=== PATIENT | male | born 1990 | race Caucasian/White ===

== ENCOUNTER 2019-12-31 19:06 | Emergency (ER) | payer SELFPAY ==
[~2019-12-31] VITALS: Ht 160 cm; Wt 77.3 kg
[2019-12-31 19:20] VITALS: BP 127/86
[2019-12-31] MEDS ORDERED: TR1C15 TP (19:47)
--- NOTE | 2019-12-31 19:47 | ED Integumentary General ---
General Chief Complaint: Allergic Reaction Stated Complaint: RASH ON FACE Nursing Triage Note: pt noticed rash above right eye this morning and now has spread up forehead, pt has not taken anything for rash, no known cause other than pt has been stressed Source: patient Exam Limitations: no limitations History of Present Illness Date Seen by Provider: Dec 31, 2019 Time Seen by Provider: 19:42 Initial Comments Patient complains of a rash starting on the right eyebrow area spread down bilateral nasal labial fold area onto his cheeks stops at the jawline is not on the forehead there is non-the posterior neck is on the chest abdomen back it's not pruritic S of breath no vomiting or diarrhea no history of allergy problems no change in medication. Timing/Duration: this morning Severity: mild Location: face Possible Cause: no cause identified Associated Symptoms: denies symptoms Allergies and Home Medications Patient Home Medication List Home Medication List Reviewed: Yes Review of Systems Review of Systems Constitutional: no symptoms reported EENTM: No blurred vision, No double vision, No throat pain Respiratory: No short of breath, No stridor Cardiovascular: No edema, No palpitations, No syncope Gastrointestinal: No diarrhea, No nausea Genitourinary: No hematuria, No pain Skin: see HPI Psychiatric/Neurological: See HPI; Denies Paresthesia, Denies Seizure, Denies Tingling Endocrine: See HPI; Denies Excessive Sweating, Denies Flushing, Denies Increased Urine, Denies Other Hematologic/Lymphatic: Denies Other Past Wafxoed-Maxscn-Iitkma Hx Past Med/Social Hx: Reviewed Nursing Past Med/Soc Hx Patient Social History Alcohol Use: Denies Use Recreational Drug Use: No Smoking Status: Current Everyday Smoker Type Used: Cigarettes 2nd Hand Smoke Exposure: No Recent Foreign Travel: No Contact w/Someone Who Travel: No Recent Infectious Disease Expo: No Recent Hopitalizations: No Physical Abuse: No Sexual Abuse: No Mistreated: No Fear: No Seasonal Allergies Seasonal Allergies: No Past Medical History Surgeries: No Respiratory: No Cardiac: No Neurological: No Genitourinary: No Gastrointestinal: Yes Gastroesophageal Reflux Musculoskeletal: No Endocrine: No HEENT: No Cancer: No Psychosocial: No Integumentary: No Blood Disorders: No Adverse Reaction/Blood Tranf: No Physical Exam Vital Signs Vital Signs - First Documented 12/31/19 19:20 Temp 36.2 Pulse 88 Resp 16 B/P (MAP) 127/86 (100) Pulse Ox 97 O2 Delivery Room Air Capillary Refill : Less Than 3 Seconds General Appearance: WD/WN, no apparent distress Neck: non-tender, full range of motion, supple, normal inspection Cardiovascular: regular rate, rhythm, no edema Respiratory: chest non-tender, lungs clear, normal breath sounds Back: normal inspection Extremities: normal range of motion, non-tender, normal inspection Neurologic/Psychiatric: basting cleaner II-XII nml as tested, no motor/sensory deficits, alert Skin: normal color, warm/dry Skin Problem Location: face (rashes or erythema it's palpable small papules there is no vesiculation there is no urticaria there is no wheal or flare reaction distributed along the upper lids down to the bilateral nasal labial fold area and into the rosas area.) Skin Problem Character: erythema, papules, patchy Progress/Results/Core Measures Results/Orders Vital Signs/I&O 12/31/19 19:20 Temp 36.2 Pulse 88 Resp 16 B/P (MAP) 127/86 (100) Pulse Ox 97 O2 Delivery Room Air Blood Pressure Mean: 100 Progress Progress Note : Progress Note Differential includes seborrheic dermatitis contact dermatitis unlikely Rachana dermatitis no evidence of urticarial or immune mediated reaction. Plan will be topical steroids for 3 days only reevaluation with primary care midfacial contacted low residue soap and water only Departure Impression Primary Impression: Contact dermatitis Disposition: 01 HOME, SELF-CARE Condition: Improved Departure-Patient Inst. Decision time for Depature: 19:46 Patient Instructions: Dermatitis Add. Discharge Instructions: Follow-up with your primary care provider if no better in 3-4 days. All discharge instructions reviewed with patient and/or family. Voiced understanding. RAVINDER THOMAS DO Dec 31, 2019 19:47
== END 2019-12-31 19:53 | disposition home or self-care (01) ==
LOC: ER FS 19:07
DX: L25.9 Unspecified contact dermatitis, unspecified cause (principal); F17.210 Nicotine dependence, cigarettes, uncomplicated
CPT/HCPCS: 99281

== ENCOUNTER 2020-01-25 18:01 | Emergency (ER) | payer SELFPAY ==
[~2020-01-25 18:01] MED LIST: TR1C15 TP
[2020-01-25 18:05] VITALS: BP 114/83
--- NOTE | 2020-01-25 18:21 | ED EENT ---
History of Present Illness General Chief Complaint: Ear Problems Stated Complaint: TROUBLE HEARING OUT OF BOTH EARS Nursing Triage Note: Patient states he has ear wax jammed in both ears since yesterday and is having trouble hearing. Source: patient Exam Limitations: no limitations History of Present Illness Date Seen by Provider: Jan 25, 2020 Time Seen by Provider: 18:15 Initial Comments presents w complaint his ears are clogged and he is having some difficulty hearing out of both ears. Hx of similar problem in the past that he occasionally goes to the doctor to have his ears cleaned out. Denies fever, pain or dizziness. Allergies and Home Medications Allergies Coded Allergies: No Known Drug Allergies (Unverified , 01/25/20) Home Medications Triamcinolone Acet 15 Gm Cr, 15 GM TP DAILY Prescribed by: RAVINDER THOMAS on 12/31/191949 Patient Home Medication List Home Medication List Reviewed: Yes Review of Systems Review of Systems Constitutional: no symptoms reported; No chills, No fever, No malaise, No weakness Eyes: No Symptoms Reported Ears: See HPI; Denies Dizziness, Denies Pain, Denies Serosanguinous Discharge, Denies Previous Injury Nose: no symptoms reported Mouth: no symptoms reported Throat: no symptoms reported Respiratory: no symptoms reported Skin: no symptoms reported Past Dhlelex-Cmfiar-Neyhve Hx Past Med/Social Hx: Reviewed Nursing Past Med/Soc Hx Patient Social History Alcohol Use: Denies Use Recreational Drug Use: No Smoking Status: Current Everyday Smoker Type Used: Cigarettes 2nd Hand Smoke Exposure: No Recent Foreign Travel: No Contact w/Someone Who Travel: No Recent Infectious Disease Expo: No Recent Hopitalizations: No Physical Abuse: No Sexual Abuse: No Mistreated: No Fear: No Seasonal Allergies Seasonal Allergies: No Past Medical History Surgeries: No Respiratory: No Cardiac: No Neurological: No Genitourinary: No Gastrointestinal: Yes Gastroesophageal Reflux Musculoskeletal: No Endocrine: No HEENT: No Cancer: No Psychosocial: No Integumentary: No Blood Disorders: No Adverse Reaction/Blood Tranf: No Physical Exam Vital Signs Vital Signs - First Documented 01/25/20 18:05 Temp 36.7 Pulse 88 Resp 16 B/P (MAP) 114/83 (93) Pulse Ox 97 Height, Weight, BMI Height: '" Weight: lbs. oz. kg; BMI Method: General Appearance: WD/WN, no apparent distress Eyes: bilateral eye normal inspection, bilateral eye PERRL, bilateral eye EOMI Ears: bilateral ear auricle normal, bilateral ear other (cerumen impaction b/l) Nose: normal inspection; No sinus tenderness Neck: non-tender, supple Neurologic/Psychiatric: alert, normal mood/affect Skin: normal color, warm/dry Progress/Results/Core Measures Results/Orders Vital Signs/I&O 01/25/20 18:05 Temp 36.7 Pulse 88 Resp 16 B/P (MAP) 114/83 (93) Pulse Ox 97 Blood Pressure Mean: 93 Departure Impression Primary Impression: Impacted cerumen Qualified Codes: H61.23 - Impacted cerumen, bilateral Disposition: HOME, SELF-CARE Condition: Improved Departure-Patient Inst. Decision time for Depature: 18:20 Referrals: [facility]/REBEKAH SOSA,LOCAL PHYSICIAN (PCP) Primary Care Physician Patient Instructions: Ear Wax Impaction (DC) Add. Discharge Instructions: Follow up at the [facility] for any further problems with your ears All discharge instructions reviewed with patient and/or family. Voiced unde rstanding. CURTIS GRULLON DO Jan 25, 2020 18:21
== END 2020-01-25 18:34 | disposition home or self-care (01) ==
LOC: EDUNIT# 18:01 → ER FS 18:03
DX: H61.23 Impacted cerumen, bilateral (principal); F17.210 Nicotine dependence, cigarettes, uncomplicated
CPT/HCPCS: 69210

== ENCOUNTER 2021-03-23 22:00 | Emergency (ER) | payer MEDICAID ==
[2021-03-24] MEDS ORDERED: FAMOTIDINE 20 MG (PEPCID) TABLET PO STA (00:14)
[2021-03-24] MEDS ORDERED: LIDOCAINE 2% VISCOUS 15 ML UDC PO ONE (00:15)
[2021-03-24] MEDS ORDERED: ANTACID SUSP 30 ML UDC (MYLANTA) PO ONE (00:15)
--- NOTE | 2021-03-24 01:03 | ED Abdominal Pain ---
General Chief Complaint: Abdominal/GI Problems Stated Complaint: RIGHT SIDE PAIN/RUNNY NOSE/COUGH/HEADACHE Nursing Triage Note: Pt arrives via POV from home for c/o right sided ABD pain; onset two weeks ago. Pt reports hx of gastric ulcer, states he has been eating spicy food. Pt also requesting COVID testing Source of Information: Patient Exam Limitations: No Limitations History of Present Illness Date Seen by Provider: Mar 24, 2021 Time Seen by Provider: 23:50 Initial Comments Patient presents ER by private conveyance chief complaint of some epigastric abdominal pain worse after eating spicy food. He has a history of GERD on GERD medicines but does not always take them and continues to be spicy, high acid foods because he states he likes them. He also has cough congestion and malaise and would like a test for COVID-19. No lung history. No fevers chills nausea vomiting diarrhea. No abdominal surgeries Allergies and Home Medications Allergies Coded Allergies: No Known Drug Allergies (Unverified , 01/25/20) Patient Home Medication List Home Medication List Reviewed: Yes Triamcinolone Acet (Triamcinolone Acetonide 0.1% Cream) 15 Gm Cr, 15 GM TP DAILY Prescribed by: RAVINDER THOMAS on 12/31/191949 Review of Systems Review of Systems Constitutional: chills; No fever; malaise EENTM: No Blurred Vision, No Double Vision Respiratory: Cough; Denies Shortness of Air Cardiovascular: Denies Chest Pain, Denies Lightheadedness Gastrointestinal: See HPI, Abdominal Pain; Denies Constipated, Denies Diarrhea, Denies Nausea Genitourinary: Denies Burning, Denies Discharge Musculoskeletal: No back pain, No joint pain All Other Systems Reviewed Negative Unless Noted: Yes Past Xlehsjl-Vjxtsn-Cbogkf Hx Patient Social History Tobacco Use?: Yes Tobacco type used: Cigarettes Use of E-Cig and/or Vaping dev: Yes E-Cig or Vaping type used: Synthetic Cannabinoids Substance use?: No Alcohol Use?: No Pt feels they are or have been: No Immunizations Up To Date Influenza Vaccine Up-to-Date: No; Not Current First/Initial COVID19 Vaccinat: Dec 2020 COVID19 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 oz. kg; BMI Method: General Appearance: WD/WN, no apparent distress HEENT: PERRL/EOMI, pharynx normal Neck: full range of motion, supple, normal inspection Respiratory: lungs clear, normal breath sounds, no respiratory distress, no accessory muscle use Cardiovascular: normal peripheral pulses, regular rate, rhythm Peripheral Pulses: 2+ Radial Pulses (R), 2+ Radial Pulses (L) Gastrointestinal: normal bowel sounds, non tender, soft, no organomegaly, other (No mesenteric symptoms. Negative for Cruz sign or rebound tenderness) Extremities: normal range of motion, non-tender, normal capillary refill Neurologic/Psychiatric: alert, normal mood/affect, oriented x 3 Skin: normal color, warm/dry Progress/Results/Core Measures Results/Orders Lab Results Laboratory Tests Test 03/24/21 00:09 Range/Units Influenza Type A Antigen NEGATIVE NEGATIVE Influenza Type B Antigen NEGATIVE NEGATIVE My Orders Orders - RESHMA NEGRON Lidocaine 2% Viscous 15 Ml (Xylocaine Vi (03/24/21 00:15) Famotidine Tablet (Pepcid Tablet) (03/24/21 00:14) Antacid Suspension (Mylanta Suspension (03/24/21 00:15) Coronavirus Sars-Cov-2 So 2019 (03/24/21 00:14) Influenza A & B Antigens (03/24/21 00:14) Medications Given in ED Current Medications Medications Dose Ordered Sig/Harpreet Route Start Time Stop Time Status Last Admin Dose Admin Al Hydrox/Mg Hydrox/Simethicone 30 ml ONCE ONCE PO 03/24/21 00:15 03/24/21 00:16 DC 03/24/21 00:32 30 ML Lidocaine HCl 15 ml ONCE ONCE PO 03/24/21 00:15 03/24/21 00:16 DC 03/24/21 00:32 15 ML Progress Progress Note : Time: 01:00 Progress Note Send out Covid. Influenza swab. GI cocktail. GI cocktail made his pain go to 0 out of 10. Will refer him on to Dr. Delgado for outpatient management of GERD, possible PUD. Departure Impression Primary Impression: Gastritis Qualified Codes: K29.50 - Unspecified chronic gastritis without bleeding Disposition: HOME, SELF-CARE Condition: Improved Departure-Patient Inst. Decision time for Depature: 01:04 Referrals: JESUS DELGADO,LOCAL PHYSICIAN (PCP) Primary Care Physician Patient Instructions: Gastritis (DC) Add. Discharge Instructions: Avoid spicy, greasy foods. Avoid foods high in acid such as orange juice or tomatoes. Carafate 30 minutes prior to meals and at bedtime 4 times a day for the next 2 weeks. Omeprazole/Prilosec 20 mg twice a day for the next month. Call Dr. Delgado, general surgeon and request a follow-up appointment to help work-up your gastritis for a ulcers or other possibilities. Someone will call you in the next day or so with the results of your Covid test. Until you know it is negative just stay away from folks and wear your mask. If it is positive and your symptoms are mild you may return as soon as next Monday if you are fever free for the past 24 hours. All discharge instructions reviewed with patient and/or family. Voiced understanding. Scripts Sucralfate (Carafate) 1 Gm Tablet 1 GM PO QIDACHS for 14 Days, #60 TAB 0 Refills Prov: RESHMA NEGRON 03/24/21 Omeprazole (Omeprazole) 20 Mg Capsule. 20 MG PO BID for 30 Days, #60 CAP 0 Refills Prov: RESHMA NEGRON 03/24/21 Work/School Note: Work Release Form Date Seen in the Emergency Department: Mar 24, 2021 Return to Work: Mar 29, 2021 Restrictions: Return-No Fever (24hrs) Copy Copies To 1: JESUS DELGADO TITUS J Mar 24, 2021 01:03
[2021-03-24] MEDS ORDERED: SUCR1TAB36 PO (01:07)
[2021-03-24] MEDS ORDERED: OMEP20CA18 PO (01:07)
== END 2021-03-24 01:15 | disposition home or self-care (01) ==
LOC: EDUNIT# 22:00 → ER 22:02
DX: K29.50 Unspecified chronic gastritis without bleeding (principal); F17.210 Nicotine dependence, cigarettes, uncomplicated; Z20.822 Contact with and (suspected) exposure to COVID-19
CPT/HCPCS: 87635; 87804; 99283

== ENCOUNTER 2021-12-10 22:06 | Emergency (ER) | payer MEDICAID ==
[~2021-12-10] VITALS: Ht 165.1 cm; Wt 79.0 kg
[~2021-12-10 22:06] MED LIST changes: +OMEP20CA18 PO; +SUCR1TAB36 PO
[2021-12-10 22:23] VITALS: BP 127/95
[2021-12-10] MEDS ORDERED: FAMOTIDINE 20 MG (PEPCID) TABLET PO STA (22:26)
--- NOTE | 2021-12-10 22:27 | ED GI ---
General Stated Complaint: N/V Source of Information: Patient Exam Limitations: No Limitations History of Present Illness Date Seen by Provider: Dec 10, 2021 Time Seen by Provider: 22:08 Initial Comments 31-year-old male with past medical history of GERD coming in due to running out of his omeprazole and having more acid reflux symptoms. He says when this occurs he typically has nausea and sometimes some vomiting. This is been going on for about a week since he ran out of the medicine. Having some epigastric burning but no severe pain at this time. Otherwise denying any fever, cough, chest pain, shortness of breath, weakness, numbness, diarrhea, rash, or any other concerns. Allergies and Home Medications Allergies Coded Allergies: No Known Drug Allergies (Unverified , 01/25/20) Patient Home Medication List Home Medication List Reviewed: Yes Omeprazole (Omeprazole) 20 Mg Capsule.dr, 20 MG PO BID Prescribed by: RESHMA NEGRON on 03/24/21106 Sucralfate (Carafate) 1 Gm Tablet, 1 GM PO QIDACHS Prescribed by: RESHMA NEGRON on 03/24/21106 Triamcinolone Acet (Triamcinolone Acetonide 0.1% Cream) 15 Gm Cr, 15 GM TP DAILY Prescribed by: RAVINDER THOMAS on 12/31/19 1950 Review of Systems Review of Systems Constitutional: No fever EENTM: No Blurred Vision Respiratory: Denies Cough Cardiovascular: Denies Chest Pain Gastrointestinal: Nausea Genitourinary: No Symptoms Reported Musculoskeletal: no symptoms reported Skin: no symptoms reported Psychiatric/Neurological: No Symptoms Reported Endocrine: No Symptoms Reported Hematologic/Lymphatic: No Symptoms Reported All Other Systems Reviewed Negative Unless Noted: Yes Past Ozaacfp-Nphbqs-Lbwhap Hx Patient Social History Tobacco Use?: Yes Immunizations Up To Date First/Initial COVID19 Vaccinat: Dec 2020 Seasonal Allergies Seasonal Allergies: No Past Medical History Surgeries: No Respiratory: No Cardiac: No Neurological: No Genitourinary: No Gastrointestinal: Yes Gastroesophageal Reflux Musculoskeletal: No Endocrine: No HEENT: No Cancer: No Psychosocial: No Integumentary: No Blood Disorders: No Adverse Reaction/Blood Tranf: No Physical Exam Vital Signs Capillary Refill : Height/Weight/BMI Height: '" Weight: lbs. oz. kg; BMI Method: General Appearance: WD/WN, no apparent distress HEENT: PERRL/EOMI, normal ENT inspection, pharynx normal Neck: non-tender, full range of motion, supple, normal inspection Respiratory: chest non-tender, lungs clear, normal breath sounds, no respiratory distress, no accessory muscle use Cardiovascular: regular rate, rhythm, no edema, no murmur Gastrointestinal: normal bowel sounds, non tender, soft; No distended, No guarding, No rebound Extremities: normal range of motion, non-tender, normal inspection, no pedal edema, no calf tenderness, normal capillary refill Back: normal inspection, no CVA tenderness Neurologic/Psychiatric: no motor/sensory deficits, alert, normal mood/affect Skin: normal color, warm/dry Lymphatic: no adenopathy Progress/Results/Core Measures Results/Orders My Orders Orders - RIC VIDALES MD Lidocaine 2% Viscous 15 Ml (Xylocaine Vi (12/10/21 22:30) Famotidine Tablet (Pepcid Tablet) (12/10/21 22:26) Antacid Suspension (Mylanta Suspension (12/10/21 22:30) Progress Progress Note : Progress Note 31-year-old male with above history coming in due to running out of his PPI and having reflux type symptoms. ABCs were intact and vitals were stable on presentation. Physical exam reassuring including a soft and nontender abdomen. He was given a GI cocktail with near total resolution of his symptoms. I believe he stable for discharge with outpatient follow-up. He was sent home with strict return precautions. Departure Impression Primary Impression: Vomiting in adult Additional Impression: GERD (gastroesophageal reflux disease) Qualified Codes: K21.9 - Gastro-esophageal reflux disease without esophagitis Disposition: 01 HOME, SELF-CARE Condition: Improved Departure-Patient Inst. Decision time for Depature: 22:40 Referrals: NO,LOCAL PHYSICIAN (PCP/Family) Primary Care Physician Patient Instructions: Acid Reflux, Adult and Adolescent ED Add. Discharge Instructions: A refill of your medicine was sent to your pharmacy as well as some nausea medicine. You can also try taking rwib-sly-zvracci Maalox to help with the b urning. Follow-up with your regular doctor if your headaches are not improving after the next week. Otherwise take Tylenol for it, ibuprofen is also okay, but it can make your GERD worse. Scripts Ondansetron (Ondansetron Odt) 4 Mg Tab.rapdis 4 MG SL Q6H PRN for NAUSEA/VOMITING for 5 Days, #20 TAB Prov: RIC VIDALES MD 12/10/21 Omeprazole (Omeprazole) 20 Mg Capsule.dr 20 MG PO BID for 30 Days, #60 CAP 0 Refills Prov: RIC VIDALES MD 12/10/21 Work/School Note: Work Release Form Date Seen in the Emergency Department: Dec 10, 2021 Return to Work: Dec 12, 2021 Restrictions: Return-No Vomiting(24hrs) RIC VIDALES MD Dec 10, 2021 22:27
[2021-12-10] MEDS ORDERED: ONDANSETRON 4 MG (ZOFRAN) ORAL DISSOLVE TAB PO STA (22:28)
[2021-12-10] MEDS ORDERED: ANTACID SUSP 30 ML UDC (MYLANTA) PO ONE (22:30)
[2021-12-10] MEDS ORDERED: LIDOCAINE 2% VISCOUS 15 ML UDC PO ONE (22:30)
[2021-12-10] MEDS ORDERED: OMEP20CA18 PO (22:32)
[2021-12-10] MEDS ORDERED: ONDA4TAB11 SL (22:32)
== END 2021-12-10 22:40 | disposition home or self-care (01) ==
LOC: EDUNIT# 22:06 → ER FS 22:09
DX: K21.9 Gastro-esophageal reflux disease without esophagitis (principal); R11.10 Vomiting, unspecified; Z72.0 Tobacco use; Z91.14 Patient's other noncompliance with medication regimen; Z28.310 Unvaccinated for COVID-19
CPT/HCPCS: 99283